=== PATIENT | male | born 1990 | race Two or more races ===

== ENCOUNTER 2018-03-20 03:34 | Emergency (ER) | payer SELFPAY ==
[~2018-03-20] VITALS: Ht 167.6 cm; Wt 70.3 kg
--- NOTE | 2018-03-20 03:45 | NUR ---
PT TO ER BED 2. BIB RA FROM STREET FOR ETOH. 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 VSS/RESP EVEN UNLABORED/NAD NOTED/SKIN WARM AND DRY/DENIES N-V-D/AFEBRILE/AOX4. AWAITING MD HALL.
--- NOTE | 2018-03-20 03:58 | NUR ---
LAB AT BEDSIDE FOR DRAW.
[2018-03-20 04:10] LABS: BASOPHILS % (AUTO) 0.4 % (0.0-2.0); EOSINOPHILS % (AUTO) 0.1 % (0.0-6.0); HEMATOCRIT 40 % (39-51); HEMOGLOBIN 13.2 g/dL (13.5-17.5); LYMPHOCYTES # (AUTO) 1.3 /CMM (0.8-4.8); LYMPHOCYTES % (AUTO) 16.5 % (20.0-44.0); MEAN CORPUSCULAR HEMOGLOBIN 28 PG (26.0-33.0); MEAN CORPUSCULAR HGB CONC 33 g/dl (31.0-36.0); MEAN CORPUSCULAR VOLUME 86 fL (80-96); MONOCYTES # (AUTO) 0.7 /CMM (0.1-1.30); MONOCYTES % (AUTO) 9.2 % (2.0-12.0); NEUTROPHILS # (AUTO) 5.7 /CMM (1.8-8.9); NEUTROPHILS % (AUTO) 73.8 % (43.0-81.0); PLATELET COUNT (AUTO) 378 /CMM (150-450); RDW COEFFICIENT OF VARIATION 14.8 (11.5-15.0); RED BLOOD CELL COUNT(AUTO) 4.65 MIL/uL (4.5-6.0); WHITE BLOOD COUNT (AUTO) 7.7 K/uL (4.3-11.0)
--- NOTE | 2018-03-20 04:17 | NUR ---
PT TO CT VIA STRETCHER. VSS.
[2018-03-20 04:23] LABS: ALCOHOL, BLOOD < 3 mg/dL (0-0); CALCIUM, SERUM 8.9 mg/dL (8.5-10.1); CARBON DIOXIDE 23 mmol/L (21-32); CHLORIDE 102 mmol/L (98-107); CREATININE 0.8 mg/dL (0.6-1.3); GLUCOSE 100 mg/dL (74-106); POTASSIUM 3.6 mmol/L (3.5-5.1); SODIUM SERUM 138 mmol/L (136-145); UREA NITROGEN, BLOOD 17 mg/dL (7-18)
--- NOTE | 2018-03-20 04:49 | NUR ---
URINE SPECIMEN OBTAINED AND SENT TO THE LAB.
--- NOTE | 2018-03-20 06:20 | NUR ---
PT AWAKE AND ORIENTED, VSS. RN TO CONTINUE MONITORING PROVIDING SAFETY/COMFORT MEASURES.
--- NOTE | 2018-03-20 06:51 | NUR ---
PT IS STABLE WALKING WITH STEADY GAIT. ALERT AND ORIENTED X4. D/C PAPERWORK GIVEN AND SIGNED OFF.
[2018-03-20 06:52] VITALS: BP 119/84
== END 2018-03-20 06:52 | disposition home or self-care (01) ==
LOC: ER 03:37 → EDBD 03:37 → ER 06:52
DX: F15.10 Other stimulant abuse, uncomplicated (principal); G93.40 Encephalopathy, unspecified; R40.4 Transient alteration of awareness
CPT/HCPCS: 36415; 70450; 80048; 80305; 85025; 99285; A4606; G0480; Z7610